=== PATIENT | female | born 1945 | race Caucasian/White ===

== ENCOUNTER 2020-01-10 15:32 | Inpatient (IN) | payer MEDICARE, BC ==
[~2020-01-10] VITALS: Ht 167.6 cm; Wt 78.6 kg
--- NOTE | 2020-01-10 15:54 | PHYS DOC ---
Past History Past Medical History: Cancer (colon), Hypertension, Hypothyroid Past Surgical History: Appendectomy, Cholecystectomy, Colectomy (partial), Hysterectomy Adult General Chief Complaint Chief Complaint: NAUSEA/VOMITING/DIARRHEA HPI HPI 74-year-old female with history of hypertension, hyperlipidemia, hypothyroidism, fibromyalgia, migraines, colon cancer in remission s/p partial colectomy, who presents for evaluation of 3 weeks of URI symptoms. The patient reports productive cough, nasal congestion. No fevers or chills. These symptoms are accompanied by some recent upper abdominal discomfort, dull, colicky. Associated with nausea, bloody/nonbilious emesis and some loose bowel movements. The patient was recently started on amoxicillin by her primary care physician with transient efficacy. Review of Systems Review of Systems General: No fevers, chills. Eyes: No blurred vision, diplopia. ENT: No sore throat. Reports congestion. CV: No chest pain, edema. Resp: No shortness of breath. Reports cough. GI: Reports loose bowel movements, abdominal pain, nausea, vomiting. : No dysuria, hematuria. Neuro: No headache, dizziness. MSK: No myalgia, arthralgia. Skin: No acute rash, lesion. All other systems were reviewed and found to be within normal limits, except as documented in this note. Allergies Allergies Allergies Coded Allergies Type Severity Reaction Last Updated Verified fentanyl Allergy Intermediate Rash 03/11/16 Yes Iodinated Contrast Media - IV Dye Allergy Unknown rash 03/11/16 Yes acetaminophen Allergy Unknown Rash 03/11/16 Yes aspirin Allergy Unknown Rash 03/11/16 Yes buprenorphine Allergy Unknown rash 03/11/16 Yes butalbital Allergy Unknown Rash 03/11/16 Yes caffeine Allergy Unknown Rash 03/11/16 Yes carbamazepine Allergy Unknown Rash 03/11/16 Yes isosorbide Allergy Unknown rash 03/11/16 Yes ketorolac Allergy Unknown Rash 03/11/16 Yes meperidine Allergy Unknown rash 03/11/16 Yes metaxalone Allergy Unknown Rash 03/11/16 Yes methadone Allergy Unknown Rash 03/11/16 Yes morphine Allergy Unknown 03/11/16 Yes oxycodone Allergy Unknown Rash 03/11/16 Yes pentazocine Allergy Unknown 03/11/16 Yes rofecoxib Allergy Unknown rash 03/11/16 Yes Physical Exam Physical Exam Gen: NAD. Head: NC/AT Eyes: No scleral icterus. No conjunctival injection. ENT: MMM. Posterior OP clear. Neck: Supple. NT. CV: RRR. Peripheral pulses intact. Resp: Globally diminished throughout. No increased work of breathing. Abd: Soft. NT. ND. No flank percussion tenderness. MSK: No peripheral cyanosis. No edema. Neuro: Awake and alert. Skin: Warm. Dry. Psych: Appropriate mood & affect. Current Patient Data Lab Results Laboratory Tests Test 01/10/20 15:49 White Blood Count 13.0 x10^3/uL Red Blood Count 4.47 x10^6/uL Hemoglobin 12.7 g/dL Hematocrit 38.1 % Mean Corpuscular Volume 85 fL Mean Corpuscular Hemoglobin 28 pg Mean Corpuscular Hemoglobin Concent 33 g/dL Red Cell Distribution Width 14.1 % Platelet Count 211 x10^3/uL Neutrophils (%) (Auto) 86 % Lymphocytes (%) (Auto) 5 % Monocytes (%) (Auto) 8 % Eosinophils (%) (Auto) 0 % Basophils (%) (Auto) 1 % Neutrophils # (Auto) 11.1 x10^3uL Lymphocytes # (Auto) 0.7 x10^3/uL Monocytes # (Auto) 1.0 x10^3/uL Eosinophils # (Auto) 0.0 x10^3/uL Basophils # (Auto) 0.1 x10^3/uL Sodium Level 135 mmol/L Potassium Level 3.9 mmol/L Chloride Level 98 mmol/L Carbon Dioxide Level 28 mmol/L Anion Gap 9 Blood Urea Nitrogen 15 mg/dL Creatinine 1.0 mg/dL Estimated GFR (Cockcroft-Gault) 53.9 BUN/Creatinine Ratio 15 Glucose Level 122 mg/dL Calcium Level 9.7 mg/dL Magnesium Level 1.8 mg/dL Total Bilirubin 0.6 mg/dL Aspartate Amino Transf (AST/SGOT) 26 U/L Alanine Aminotransferase (ALT/SGPT) 32 U/L Alkaline Phosphatase 171 U/L Total Protein 7.1 g/dL Albumin 3.2 g/dL Albumin/Globulin Ratio 0.8 Lipase 55 U/L Current Medications Medications (Trade) Dose Ordered Sig/Nadege Route PRN Reason Start Time Stop Time Status Last Admin Dose Admin Sodium Chloride 500 ml @ 0 mls/hr 1X ONCE IV 01/10/20 16:00 01/10/20 16:01 DC 01/10/20 16:16 Prednisone (Prednisone) 40 mg 1X ONCE PO 01/10/20 16:15 01/10/20 16:16 DC 01/10/20 16:17 Albuterol/ Ipratropium (Duoneb) 3 ml 1X ONCE NEB 01/10/20 16:15 01/10/20 16:16 DC 01/10/20 16:17 Laboratory Tests Test 01/10/20 15:49 White Blood Count 13.0 x10^3/uL Red Blood Count 4.47 x10^6/uL Hemoglobin 12.7 g/dL Hematocrit 38.1 % Mean Corpuscular Volume 85 fL Mean Corpuscular Hemoglobin 28 pg Mean Corpuscular Hemoglobin Concent 33 g/dL Red Cell Distribution Width 14.1 % Platelet Count 211 x10^3/uL Neutrophils (%) (Auto) 86 % Lymphocytes (%) (Auto) 5 % Monocytes (%) (Auto) 8 % Eosinophils (%) (Auto) 0 % Basophils (%) (Auto) 1 % Neutrophils # (Auto) 11.1 x10^3uL Lymphocytes # (Auto) 0.7 x10^3/uL Monocytes # (Auto) 1.0 x10^3/uL Eosinophils # (Auto) 0.0 x10^3/uL Basophils # (Auto) 0.1 x10^3/uL Sodium Level 135 mmol/L Potassium Level 3.9 mmol/L Chloride Level 98 mmol/L Carbon Dioxide Level 28 mmol/L Anion Gap 9 Blood Urea Nitrogen 15 mg/dL Creatinine 1.0 mg/dL Estimated GFR (Cockcroft-Gault) 53.9 BUN/Creatinine Ratio 15 Glucose Level 122 mg/dL Calcium Level 9.7 mg/dL Magnesium Level 1.8 mg/dL Total Bilirubin 0.6 mg/dL Aspartate Amino Transf (AST/SGOT) 26 U/L Alanine Aminotransferase (ALT/SGPT) 32 U/L Alkaline Phosphatase 171 U/L Total Protein 7.1 g/dL Albumin 3.2 g/dL Albumin/Globulin Ratio 0.8 Lipase 55 U/L Current Medications Medications (Trade) Dose Ordered Sig/Nadege Route PRN Reason Start Time Stop Time Status Last Admin Dose Admin Sodium Chloride 500 ml @ 0 mls/hr 1X ONCE IV 01/10/20 16:00 01/10/20 16:01 DC 01/10/20 16:16 Prednisone (Prednisone) 40 mg 1X ONCE PO 01/10/20 16:15 01/10/20 16:16 DC 01/10/20 16:17 Albuterol/ Ipratropium (Duoneb) 3 ml 1X ONCE NEB 01/10/20 16:15 01/10/20 16:16 DC 01/10/20 16:17 EKG EKG [] Radiology/Procedures Radiology/Procedures CXR: 1. Poor inspiration. 2. Basilar atelectasis or infiltrates. CTAP: 1. No acute abnormality is seen throughout the abdomen or pelvis. Postsurgical changes involving the proximal colon without complicating features. 2. Ill-defined infiltrate at the right lower lobe with intermixed nodularity. This is compatible with either an infectious infiltrate or potentially the sequela of aspiration. 3. Chronic findings as discussed above. Course & Med Decision Making Course & Med Decision Making Pertinent Labs and Imaging studies reviewed. (See chart for details) In summary, 74-year-old female who presents for evaluation of a few weeks of URI symptoms, not amenable to outpatient treatment with amoxicillin. Today, she is found to have bibasilar infiltrates, more so on the right lower lobe, in the setting of leukocytosis of 13. No fever, though mild tachycardia, improved with IV fluids. The patient will receive Rocephin and Zithromax for community acquired pneumonia. Due to outpatient treatment failure, the patient will be admitted for further management. Otherwise remains hemodynamically stable. Dragon Disclaimer Dragon Disclaimer This electronic medical record was generated, in whole or in part, using a voice recognition dictation system. Departure Departure: Impression: Primary Impression: Community acquired pneumonia Disposition: ADMITTED INPATIENT Admitting Physician: Mamta Bear Condition: STABLE Referrals: PRISCILA EAST MD (PCP) DONIS GRAY DO Jan 10, 2020 15:54
[2020-01-10] MEDS ORDERED: IV NORMAL SALINE 500ML 500 ML IV ONE (16:00)
[2020-01-10 16:01] LABS: BASO # 0.1 x10^3/uL (0.0-0.2); BASO % 1 % (0-3); EOS % 0 % (0-3); HEMATOCRIT 38.1 % (36.0-47.0); HEMOGLOBIN 12.7 g/dL (12.0-15.5); LYMPH # 0.7 x10^3/uL (1.0-4.8); LYMPH % 5 % (24-48); MEAN CORPUSCULAR HEMOGLOBIN 28 pg (25-35); MEAN CORPUSCULAR HGB CONC 33 g/dL (31-37); MEAN CORPUSCULAR VOLUME 85 fL (79-100); MONO % 8 % (0-9); NEUT # 11.1 x10^3uL (1.8-7.7); NEUT % 86 % (31-73); PLATELET COUNT 211 x10^3/uL (140-400); RED BLOOD COUNT 4.47 x10^6/uL (3.50-5.40); RED CELL DISTRIBUTION WIDTH 14.1 % (11.5-14.5)
[2020-01-10 16:09] LABS: CALCIUM 9.7 mg/dL (8.5-10.1); GFR 53.9; POTASSIUM 3.9 mmol/L (3.5-5.1)
[2020-01-10 16:15] LABS: ALBUMIN 3.2 g/dL (3.4-5.0); ALBUMIN/GLOBULIN RATIO 0.8 (1.0-1.7); MAGNESIUM 1.8 mg/dL (1.8-2.4); TOTAL BILIRUBIN 0.6 mg/dL (0.2-1.0); TOTAL PROTEIN 7.1 g/dL (6.4-8.2)
[2020-01-10] MEDS ORDERED: IPRATRPIUM/ALBUTEROL 0.5/2.5MG 3 ML NEBU. NEB ONE (16:15)
[2020-01-10] MEDS ORDERED: predniSONE 20 MG TABLET PO ONE (16:15)
--- NOTE | 2020-01-10 16:26 | RAD ---
PA and lateral chest. HISTORY: Cough PA and lateral views were taken of the chest. There is arthritis in both shoulders. Patient's taken a poor inspiration. There is hazy atelectasis or infiltrate along both diaphragms and also noted posteriorly on the lateral view. Heart is within normal limits in size. The aorta is tortuous. IMPRESSION: 1. Poor inspiration. 2. Basilar atelectasis or infiltrates. Electronically signed by: Freddie Shepard MD (01/10/2020 4:23 PM) [id number]
--- NOTE | 2020-01-10 16:38 | RAD ---
Study: CT abdomen/pelvis without intravenous contrast Indication: Upper abdominal pain. Nausea, vomiting and diarrhea. Comparison: None available. Technique: Helical CT imaging performed of the abdomen and pelvis without the use of intravenous contrast. Sagittal and coronal reformats were obtained. One or more of the following individualized dose reduction techniques were utilized for this examination: 1. Automated exposure control 2. Adjustment of the mA and/or kV according to patient size 3. Use of iterative reconstruction technique. Findings: Inherently limited evaluation without intravenous contrast. Chest: Close evaluation of the lower thorax is degraded by motion. Ill-defined infiltrate within the right lower lobe with intermixed nodularity. Trace pleural effusion on the right. Liver: Unremarkable. Gallbladder/Biliary Tree: Surgically absent. Pancreas: Partially atrophic. Spleen: Within normal limits for size. Adrenal Glands: Normal morphology. Kidneys/Ureters/Bladder: No intrarenal stones. No collecting system dilatation. Unremarkable urinary bladder. Reproductive Organs: Absent uterus. No adnexal mass. Colon: Surgical changes noted along the proximal colon. No pericolonic inflammatory changes. Appendix: Not visualized and presumed surgically absent. Small Bowel: Nonobstructed. Stomach: Unremarkable. Vasculature: Multifocal calcific atherosclerosis scattered throughout the aorta and iliofemoral system. The abdominal aorta is tortuous. Lymph Nodes: No suspicious lymph nodes by size criteria. Peritoneum and Body Wall: Scarring along the ventral midline. Bones: Degenerative sigmoid curvature of the visualized spinal column. Severe eccentric discogenic arthrosis along the concave margins of the curvature most notably at L1-L2 through L3-L4. Multilevel facet degeneration. Osseous neural foraminal encroachment is most pronounced on the left at L3-L4. Central canal encroachment is most pronounced at L2-L3 but does not appear severe. Partially visualized T10 vertebral body hemangioma. Degenerative changes at the right more so than left hips as well as of both sacroiliac joints. Miscellaneous: None. Impression: 1. No acute abnormality is seen throughout the abdomen or pelvis. Postsurgical changes involving the proximal colon without complicating features. 2. Ill-defined infiltrate at the right lower lobe with intermixed nodularity. This is compatible with either an infectious infiltrate or potentially the sequela of aspiration. 3. Chronic findings as discussed above. Electronically signed by: LEFTY MCGINNIS MD (01/10/2020 4:35 PM) [id number]
[2020-01-10] MEDS ORDERED: ONDANSETRON PF 4 MG/2 ML VIAL. IV PRN (17:30)
[2020-01-10 17:46] LABS: COLOR,URINE YELLOW
[2020-01-10 17:47] LABS: BILIRUBIN,URINE NEG (NEG); CLARITY,URINE CLEAR; GLUCOSE,URINE NEG (NEG); NITRITE,URINE NEG (NEG); RBC,URINE OCC /HPF (0-2); WBC,URINE OCC /HPF (0-4)
[2020-01-10 17:48] LABS: AMORPHOUS SEDIMENT,UR PRESENT /HPF; BACTERIA,URINE 0 /HPF (0-FEW); SQUAMOUS EPITHELIAL CELL,UR OCC /LPF
[2020-01-10] MEDS ORDERED: IV NORMAL SALINE 50ML 50 ML ONE (17:59)
[2020-01-10] MEDS ORDERED: cefTRIAXone SODIUM 1 GM VIAL ONE (17:59)
[2020-01-10] MEDS ORDERED: AZITHROMYCIN 500 MG VIAL. IV ONE (17:59)
[2020-01-10] MEDS ORDERED: IV NORMAL SALINE 250ML 250 ML ONE (17:59)
[2020-01-10] MEDS ORDERED: AZITHROMYCIN 500 MG in IV NORMAL SALINE 250ML 250 ML IV ONE (18:15)
[2020-01-10 19:05] VITALS: BP 116/60
[2020-01-10] MEDS ORDERED: GABA600T7 PO (19:46)
[2020-01-10 20:00] VITALS: BP 116/60
[2020-01-10] MEDS ORDERED: ACET-704 PO ×2 (20:21→20:29)
[2020-01-10] MEDS ORDERED: FLUT16SP21 NS (20:21)
[2020-01-10] MEDS ORDERED: HYDR25TA10 PO (20:21)
[2020-01-10] MEDS ORDERED: MONT10TA11 PO (20:21)
[2020-01-10] MEDS ORDERED: DICL100G28 TOP (20:21)
[2020-01-10] MEDS ORDERED: LEVO150T5 PO (20:21)
[2020-01-10] MEDS ORDERED: BACL20TA PO (20:21)
[2020-01-10] MEDS ORDERED: ALBU2.5V8 INH (20:21)
[2020-01-10] MEDS ORDERED: LIDO5CRE18 TP (20:21)
[2020-01-10] MEDS ORDERED: PROM5SYR2 PO (20:21)
[2020-01-10] MEDS ORDERED: TOPI50TA8 PO (20:21)
[2020-01-10] MEDS ORDERED: LIDOCAINE TP PRN (20:30)
[2020-01-10] MEDS ORDERED: ACETAMINOPHEN/CODEINE 300/30MG TABLET PO PRN (20:30)
[2020-01-10] MEDS: MONTELUKAST 10 MG TABLET. PO SCH (21:00)
[2020-01-10] MEDS: GABAPENTIN 300 MG CAPSULE. PO SCH (21:00)
[2020-01-10] MEDS: methylPREDNISolone SOD SUCC PF 40 MG/ML VIAL. IV SCH (21:00)
[2020-01-10] MEDS: ACETAMINOPHEN/CODEINE 300/30MG TABLET PO PRN (21:01)
[2020-01-10 22:40] VITALS: BP 100/59
[2020-01-11] VITALS (7 sets, daily range): BP systolic 111–123; BP diastolic 56–72
[2020-01-11] MEDS: guaiFENesin/CODEINE 100mg/10mg 5 ML LIQUID PO PRN ×2 (02:40→20:16)
[2020-01-11] MEDS: IPRATRPIUM/ALBUTEROL 0.5/2.5MG 3 ML NEBU. NEB SCH ×4 (04:54→21:17)
[2020-01-11] MEDS: methylPREDNISolone SOD SUCC PF 40 MG/ML VIAL. IV SCH ×3 (05:49→21:20)
[2020-01-11 06:27] LABS: BASO % 0 % (0-3); EOS % 0 % (0-3); HEMATOCRIT 38.5 % (36.0-47.0); HEMOGLOBIN 12.7 g/dL (12.0-15.5); LYMPH # 0.6 x10^3/uL (1.0-4.8); LYMPH % 6 % (24-48); MEAN CORPUSCULAR HEMOGLOBIN 29 pg (25-35); MEAN CORPUSCULAR HGB CONC 33 g/dL (31-37); MEAN CORPUSCULAR VOLUME 86 fL (79-100); MONO # 0.3 x10^3/uL (0.0-1.1); MONO % 3 % (0-9); NEUT # 9.2 x10^3uL (1.8-7.7); NEUT % 90 % (31-73); PLATELET COUNT 193 x10^3/uL (140-400); RED BLOOD COUNT 4.45 x10^6/uL (3.50-5.40); RED CELL DISTRIBUTION WIDTH 14.2 % (11.5-14.5); WHITE BLOOD COUNT 10.2 x10^3/uL (4.0-11.0)
[2020-01-11 06:36] LABS: ALBUMIN/GLOBULIN RATIO 0.7 (1.0-1.7); CALCIUM 9.9 mg/dL (8.5-10.1); CREATININE 0.9 mg/dL (0.6-1.0); GFR 60.9; POTASSIUM 3.8 mmol/L (3.5-5.1); TOTAL BILIRUBIN 0.4 mg/dL (0.2-1.0); TOTAL PROTEIN 7.1 g/dL (6.4-8.2)
[2020-01-11] MEDS ORDERED: IV NORMAL SALINE 500ML 500 ML IV ONE (07:00)
[2020-01-11] MEDS: IV NORMAL SALINE 1,000ML 1,000 ML IV SCH ×2 (08:12→17:33)
[2020-01-11] MEDS: TOPIRAMATE 25 MG TABLET. PO PRN (08:13)
[2020-01-11] MEDS: GABAPENTIN 300 MG CAPSULE. PO SCH ×4 (08:13→20:16)
[2020-01-11] MEDS: FLUTICASONE 50MCG/NASAL SPRAY 16GM BOTTLE. NS SCH (08:13)
[2020-01-11] MEDS: LACTOBACILLUS RHAMNOSUS GG 1 CAPSULE. PO SCH ×2 (08:14→20:16)
[2020-01-11] MEDS: DICLOFENAC SODIUM 1% TOPICAL GEL 100GM TUBE. TP PRN (08:14)
[2020-01-11] MEDS: hydroCHLOROthiazide 25 MG TABLET PO SCH ×2 (08:14→17:25)
--- NOTE | 2020-01-11 16:06 | HP ---
ADMIT DATE: 01/10/2020 HISTORY OF PRESENT ILLNESS: The patient is a 74-year-old female patient, who came to the Emergency Room complaining of productive cough, nasal congestion that has been going on for almost 3 weeks now. She denied any fever or chills. She also has some upper abdominal and right-sided discomfort. She has nausea, bloody nonbilious emesis and some loose bowel movement. DICTATION ENDED AT THIS POINT. ELDON PEREZ MD DR: MADISYN/deep JOB#: [id number] / [id number]
--- NOTE | 2020-01-11 16:38 | HP ---
ADMIT DATE: 01/10/2020 HISTORY OF PRESENT ILLNESS: The patient is a 74-year-old female patient who presented to the Emergency Room for evaluation of 3 weeks of cough with greenish sputum that has been going on for 3 weeks. The cough is productive with greenish sputum. She has no fever or chills. Symptoms are accompanied recently with upper abdominal discomfort, dull, colicky associated with nausea, bloody nonbilious emesis and some loose bowel movement. She was on amoxicillin for almost 3 weeks. She takes it 4 times a day without any relief. She was evaluated in the Emergency Room and her lab work showed that her white cell count is slightly elevated at 13,000. Her chemistry was unremarkable and her x-ray of the chest showed that the patient has bilateral atelectasis or infiltrate. There is arthritis in both shoulders. There is hazy atelectasis and infiltrate along both diaphragms and also noted posteriorly on the lateral view. The heart is within normal size. Aorta is tortuous and therefore the patient was admitted with community-acquired pneumonia with failed outpatient treatment. Her CT scan of the abdomen and pelvis also showed no acute abnormalities seen throughout the abdomen and pelvis. There were surgical changes involving the proximal colon without complicating features, ill-defined infiltrate in the right lower lobe with intermixed nodularity compatible with either an infectious infiltrate or potentially sequelae of aspiration. She has chronic finding as discussed above. The patient was admitted, started on IV ceftriaxone as well as Zithromax as well as IV fluid together with steroids and bronchodilator. PAST MEDICAL HISTORY: Significant for hypertension, hyperlipidemia, hypothyroidism, bronchial asthma. She has colon cancer, status post resection twice in 03/2018 and 03/2019, osteoarthritis, fibromyalgia, chronic back pain and peripheral neuropathy. PAST SURGICAL HISTORY: Significant for cervical laminectomy, bilateral total knee arthroplasty, bilateral cataract extraction, tonsillectomy, appendectomy, cholecystectomy. ALLERGIES: SHE IS ALLERGIC TO IODINATED CONTRAST MEDIA, IV DYE, ACETAMINOPHEN, ASPIRIN, BUPRENORPHINE, BUTALBITAL, CAFFEINE, CARBAMAZEPINE, FENTANYL, ISOSORBIDE, KETOROLAC, MEPERIDINE, METAXALONE, METHADONE, MORPHINE, OXYCODONE, PENTAZOCINE, ROFECOXIB FOR VIOXX. MEDICATIONS: She is currently on following medications: She is on albuterol sulfate 1-2 puffs 3 times a day, baclofen 20 mg 3 times a day, diclofenac sodium 1 gram 4 times a day, acetaminophen with codeine 1 tablet every 6 hours, acetaminophen with codeine 2 tablets every 6 hours, gabapentin 600 mg 4 times a day, topiramate 50 mg twice a day, hydrochlorothiazide 25 mg twice a day with meals, promethazine hydrochloride with codeine 5 mL every 6 hours, montelukast sodium 10 mg at bedtime, fluticasone propionate 2 sprays to each nostril daily, levothyroxine sodium 150 mcg weekly, lidocaine 1 application topically 3 times a day. FAMILY HISTORY: Apparently her father at age of 56 because of stomach cancer, metastases. Mother at age of 96 because of colon cancer, but she had diagnosis of colon cancer at 65. She has 6 sisters, 3 of them are and 6 brothers, all of them are with 4 because of colon cancer, 2 with prostate cancer. One of her sisters of a car accident and one as complication of systemic lupus erythematosus. SOCIAL HISTORY: She is , has 1 son. Does not smoke, drink alcohol or use any recreational drugs. She retired [employer] from the [employer]. REVIEW OF SYSTEMS: As per history of present illness. PHYSICAL EXAMINATION: GENERAL: On arrival to the Emergency Room, she looked well and was clearly in no apparent respiratory distress. No pallor, jaundice, cyanosis or thyromegaly. No jugular venous distention. No limb edema. VITAL SIGNS: Her heart rate was 93, blood pressure 120/56, temperature 97.9, respiratory rate was 18 and oxygen saturation was 94% on 2 liters of oxygen. HEAD, EYES, EARS, NOSE AND THROAT: Showed normocephalic, atraumatic. NECK: Supple. HEART: Showed normal first and second heart sounds with no gallop or murmur. CHEST: Showed central trachea, equally reduced expansion, reduced air entry, vesicular sounds with bilateral crepitation, and very few scattered rhonchi. ABDOMEN: Distended, soft, nontender. NEUROLOGIC: She is awake, alert, responding appropriately. All cranial nerves intact. EXTREMITIES: She moves extremities without difficulty. LABORATORY DATA: Showed a white cell count 13,000, hemoglobin 12.7, hematocrit 38, MCV 85 and platelet count 211,000 with a manual differential showing 86% polymorphs, 5% lymphocytes, and 8% monocytes. Her serum sodium was 135, potassium 3.9, chloride 98, bicarbonate 28, anion gap of 9, BUN 15, creatinine 1, estimated GFR was 54 mL per minute. Her glucose 122, lactic acid was 2.8, calcium was 9.7, magnesium was 1.8. Total bilirubin, AST, ALT were normal. Alkaline phosphatase slightly elevated. Total protein 7.1, albumin 3.2. Lipase was normal. TSH was normal at 0.793. Her urinalysis showed the urine was yellow, clear with a pH of 5.5, specific gravity 1.025, very small amount of protein and the urine was negative for glucose, ketones, blood, nitrite, leukocyte esterase. There are no rbc's, no wbc's, and no bacteria. Her chest x-ray showed that the patient had bilateral atelectasis versus infiltrate; however, the patient has poor inspiratory effort. CT scan of the abdomen and pelvis showed that there is ill-defined infiltrate within the right lower lobe with intermixed nodularity, trace pleural effusion on the right. Liver, gallbladder, pancreas, spleen, adrenal glands, kidneys, ureters and other are all unremarkable. The appendix not visualized and presumably surgically absent. Small bowel is nonobstructed. Stomach unremarkable. She has multifocal calcified lateral atherosclerosis. No suspicious lymph nodes by size criteria and basically the patient has no acute abnormality seen throughout the abdomen and pelvis apart from postsurgical changes involving the proximal colon without complicating features. ASSESSMENT AND PLAN: The patient was admitted with failed community-acquired pneumonia outpatient treatment. She was started on IV ceftriaxone and Zithromax and we will also start on IV fluid. She had multiple episodes of diarrhea and she was on antibiotic for almost 3 weeks. Stool samples were sent for C. diff toxin, the results were still pending at the time. ELDON PEREZ MD DR: MADISYN/deep JOB#: [id number] / [id number]
[2020-01-11] MEDS: AZITHROMYCIN 250 MG TABLET. PO SCH (17:36)
[2020-01-11] MEDS: ACETAMINOPHEN/CODEINE 300/30MG TABLET PO PRN (20:17)
[2020-01-11] MEDS: MONTELUKAST 10 MG TABLET. PO SCH (20:17)
--- NOTE | 2020-01-11 20:25 | PN ---
DATE: 01/11/2020 SUBJECTIVE: The patient is resting slightly propped up in bed, in no apparent distress. She continues to have cough, but apparently less than it was before. She apparently has some nausea, but no vomiting. She continues to have loose bowel movement. PHYSICAL EXAMINATION: GENERAL: When I saw her this afternoon, she looked well and was clearly in no apparent respiratory distress. No pallor, jaundice, cyanosis or thyromegaly. No jugular venous distention. No lower limb edema. VITAL SIGNS: Her heart rate was 79, blood pressure 111/60, temperature was 97.9, respiratory rate was 20 and oxygen saturation was 96% on 2 liters of oxygen. HEAD, EYES, EARS, NOSE AND THROAT: Showed normocephalic, atraumatic. NECK: Supple. HEART: Showed normal first and second heart sounds. No gallop or murmur. CHEST: Shows central trachea, equally reduced expansion, reduced air entry, but air entry is much diminished on the right side. There is bilateral basal crepitation, very few scattered rhonchi. ABDOMEN: Distended, soft, nontender. NEUROLOGIC: She is awake, alert, responding appropriately. All cranial nerves intact. She moves extremities without difficulty. LABORATORY DATA: Her lab work this morning showed a white cell count is down to 10,000, hemoglobin 12.7, hematocrit 38, MCV 86 and platelet count of 193. Her chemistry showed serum sodium 139, potassium 3.8, chloride 101, bicarbonate 25, anion gap 13, BUN 14, creatinine 0.9, estimated GFR was 61 mL per minute. Her glucose 92, calcium was 9.9. Total bilirubin, AST, ALT, alkaline phosphatase were normal. Total protein was 7.1, albumin 3. ASSESSMENT: Community-acquired pneumonia, improving. Characterize nausea, vomiting and diarrhea. Stool was sent for C. diff toxin, the results are still pending. She has a multitude of other medical problems including hypertension, hyperlipidemia, bronchial asthma, hypothyroidism, fibromyalgia and colon cancer resection twice. ELDON PEREZ MD DR: MADISYN/deep JOB#: [id number] / [id number]
[2020-01-12] VITALS (7 sets, daily range): BP systolic 97–124; BP diastolic 49–73
[2020-01-12] MEDS: guaiFENesin/CODEINE 100mg/10mg 5 ML LIQUID PO PRN (04:14)
[2020-01-12] MEDS: ACETAMINOPHEN/CODEINE 300/30MG TABLET PO PRN ×2 (04:15→17:15)
[2020-01-12] MEDS: IV NORMAL SALINE 1,000ML 1,000 ML IV SCH ×2 (04:15→13:11)
[2020-01-12] MEDS: IPRATRPIUM/ALBUTEROL 0.5/2.5MG 3 ML NEBU. NEB SCH ×4 (05:09→21:10)
[2020-01-12] MEDS: methylPREDNISolone SOD SUCC PF 40 MG/ML VIAL. IV SCH ×3 (05:38→14:30)
[2020-01-12 06:36] LABS: HEMATOCRIT 34.2 % (36.0-47.0); HEMOGLOBIN 11.2 g/dL (12.0-15.5); RED BLOOD COUNT 3.97 x10^6/uL (3.50-5.40); RED CELL DISTRIBUTION WIDTH 14.2 % (11.5-14.5); WHITE BLOOD COUNT 13.5 x10^3/uL (4.0-11.0)
[2020-01-12 06:45] LABS: CALCIUM 9.3 mg/dL (8.5-10.1); CREATININE 0.8 mg/dL (0.6-1.0); GFR 69.7; POTASSIUM 3.5 mmol/L (3.5-5.1)
[2020-01-12] MEDS ORDERED: ONDANSETRON PF 4 MG/2 ML VIAL. IVP PRN (09:30)
[2020-01-12] MEDS: FLUTICASONE 50MCG/NASAL SPRAY 16GM BOTTLE. NS SCH (09:37)
[2020-01-12] MEDS: DICLOFENAC SODIUM 1% TOPICAL GEL 100GM TUBE. TP PRN (09:37)
[2020-01-12] MEDS: LACTOBACILLUS RHAMNOSUS GG 1 CAPSULE. PO SCH ×2 (09:38→20:29)
[2020-01-12] MEDS: hydroCHLOROthiazide 25 MG TABLET PO SCH ×2 (09:38→17:09)
[2020-01-12] MEDS: GABAPENTIN 300 MG CAPSULE. PO SCH ×4 (09:38→20:30)
[2020-01-12] MEDS: TOPIRAMATE 25 MG TABLET. PO PRN (09:40)
[2020-01-12] MEDS: AZITHROMYCIN 250 MG TABLET. PO SCH (17:09)
--- NOTE | 2020-01-12 19:24 | PN ---
DATE: 01/12/2020 SUBJECTIVE: The patient is resting, slightly propped up in bed, in no apparent distress. She continued to have cough with yellowish sputum; however, she is feeling generally much improved. Her diarrhea has largely subsided. The C. diff was negative. She is afebrile and she is now maintaining her oxygen saturation at 95% on room air. OBJECTIVE: GENERAL: When I examined her, she looked well and was clearly in no apparent respiratory distress. No pallor, jaundice, cyanosis or thyromegaly. No jugular venous distention. No limb edema. VITAL SIGNS: Her heart rate was 73, blood pressure was 116/73, temperature 97.9, respiratory rate was 16, and oxygen saturation was 95% on room air. HEAD, EYES, EARS, NOSE AND THROAT: Showed normocephalic, atraumatic. NECK: Supple. CARDIAC: Normal first and second heart sounds. No gallop, rub or murmur. CHEST: Shows central trachea, equal bilateral expansion air entry, vesicular sounds with bilateral basal crepitation posteriorly. I could not appreciate any rhonchi. ABDOMEN: Slightly distended, soft, nontender. NEUROLOGIC: She is grossly intact. Her intake over the last 24 hours was 1300, output was 150. LABORATORY DATA: Her lab work this morning showed a serum sodium 138, potassium 3.5, chloride 103, bicarbonate 23, anion gap 12, BUN 15, creatinine 0.8, estimated GFR was 69 mL per minute and glucose was 102, calcium was 9.3. Her white cell count is slightly up at 13,500, hemoglobin 11, hematocrit 34, MCV 86 and platelet count of 196,000. Her C. diff toxins were negative. ASSESSMENT: 1. Community-acquired pneumonia. Pneumonia is improving. The patient has no further episodes of nausea, vomiting. Her diarrhea subsided. Her C. diff was negative. 2. She has multiple other medical problems including: A. Hypertension. B. Hyperlipidemia. C. Bronchial asthma. D. Hypothyroidism. E. Fibromyalgia. F Colon cancer, status post resection prior x 2. PLAN: The plan is to continue with IV fluid. I would cut down the steroids to twice a day for today and cut down IV fluids to 75 mL per hour. We will evaluate her again tomorrow and we will decide on the further management accordingly. ELDON PEREZ MD DR: Zackery JOB#: [id number] / [id number]
[2020-01-12] MEDS: MONTELUKAST 10 MG TABLET. PO SCH (20:29)
[2020-01-12] MEDS: diphenhydrAMINE HCL 25 MG CAPSULE PO PRN (20:42)
[2020-01-13] MEDS: IV NORMAL SALINE 1,000ML 1,000 ML IV SCH (02:52)
[2020-01-13] MEDS: methylPREDNISolone SOD SUCC PF 40 MG/ML VIAL. IV SCH ×2 (02:56→13:49)
[2020-01-13 05:56] VITALS: BP 130/75
[2020-01-13] MEDS: IPRATRPIUM/ALBUTEROL 0.5/2.5MG 3 ML NEBU. NEB SCH ×4 (05:57→20:21)
[2020-01-13 07:05] LABS: HEMATOCRIT 38.7 % (36.0-47.0); HEMOGLOBIN 12.6 g/dL (12.0-15.5); RED BLOOD COUNT 4.45 x10^6/uL (3.50-5.40); RED CELL DISTRIBUTION WIDTH 14.5 % (11.5-14.5); WHITE BLOOD COUNT 10.4 x10^3/uL (4.0-11.0)
[2020-01-13 08:41] LABS: GFR 53.9; POTASSIUM 3.6 mmol/L (3.5-5.1)
[2020-01-13] MEDS: FLUTICASONE 50MCG/NASAL SPRAY 16GM BOTTLE. NS SCH (09:00)
[2020-01-13] MEDS: hydroCHLOROthiazide 25 MG TABLET PO SCH (09:25)
[2020-01-13] MEDS: GABAPENTIN 300 MG CAPSULE. PO SCH ×4 (09:26→21:03)
[2020-01-13] MEDS: LACTOBACILLUS RHAMNOSUS GG 1 CAPSULE. PO SCH ×2 (09:26→21:03)
[2020-01-13] MEDS: DICLOFENAC SODIUM 1% TOPICAL GEL 100GM TUBE. TP PRN (09:45)
[2020-01-13] MEDS: ACETAMINOPHEN/CODEINE 300/30MG TABLET PO PRN (09:46)
[2020-01-13 10:52] VITALS: BP 131/72
--- NOTE | 2020-01-13 13:27 | PN ---
DATE: 01/13/2020 SUBJECTIVE: The patient is sitting on the edge of the bed comfortably in no apparent distress. She denied any further episodes of cough or phlegm, no shortness of breath or chest tightness; however, she has had multiple loose bowel movements this morning. Denied any abdominal pain. She had colon resection twice. PHYSICAL EXAMINATION: GENERAL: When I examined her this morning, she looked well and was clearly in no apparent respiratory distress. No pallor, jaundice, cyanosis or thyromegaly. No jugular venous distention. No limb edema. VITAL SIGNS: Her heart rate was 85, blood pressure was 131/72, temperature was 97.5, respiratory rate was 18 and oxygen saturation was 98% on room air. HEAD, EYES, EARS, NOSE AND THROAT: Showed normocephalic, atraumatic. NECK: Supple. HEART: Showed normal first and second heart sounds. No gallop, rub or murmur. CHEST: Showed central trachea, equal bilateral chest expansion, air entry, vesicular breath sounds, very few bilateral basal crepitation. ABDOMEN: Slightly distended, soft, nontender. NEUROLOGIC: She is awake, alert, responding appropriately. All cranial nerves intact. She moves extremities without difficulty. Her intake was 4334, output was 400. LABORATORY DATA: Her lab work this morning showed a white cell count of 10,400, hemoglobin 12.6, hematocrit 38, MCV 87, platelet count 271,000. Her chemistry showed a serum sodium 140, potassium 3.6, chloride 103, bicarbonate 25, anion gap of 12, BUN 15, creatinine 1, estimated GFR was 54 mL per minute. Her glucose 146, calcium was 10. The patient has continued to be on IV antibiotic. ASSESSMENT: 1. Community-acquired pneumonia, clinically improving. The patient has no further episodes of cough or phlegm. 2. Recurrent bouts of nausea, vomiting and diarrhea and then the patient has no further episodes of nausea, vomiting; however, she continued to have diarrhea, although her C. diff toxins were negative. 3. She has multiple other medical problems including: A. Hypertension. B. Hyperlipidemia. C. Bronchial asthma. D. Hypothyroidism. E. Fibromyalgia. F. Colon cancer, status post resection x 2. PLAN: I discontinued her IV fluid. I did cut down steroids to twice a day. We will evaluate as she continued to have diarrhea. I will start her on Imodium and she remained stable and that they might be able to discharge her tomorrow. ELDON PEREZ MD DR: MADISYN/deep JOB#: [id number] / [id number]
[2020-01-13] MEDS: DIPHENOXYLATE/ATROPINE TABLET. PO SCH ×2 (13:48→21:03)
[2020-01-13 15:07] VITALS: BP 137/68
[2020-01-13] MEDS: AZITHROMYCIN 250 MG TABLET. PO SCH (17:48)
[2020-01-13 20:04] VITALS: BP 134/74
[2020-01-13] MEDS: MONTELUKAST 10 MG TABLET. PO SCH (21:03)
[2020-01-13] MEDS: diphenhydrAMINE HCL 25 MG CAPSULE PO PRN (21:06)
[2020-01-14] MEDS: methylPREDNISolone SOD SUCC PF 40 MG/ML VIAL. IV SCH ×2 (02:10→13:23)
[2020-01-14 07:13] LABS: CALCIUM 9.8 mg/dL (8.5-10.1); CREATININE 0.8 mg/dL (0.6-1.0); GFR 69.7; POTASSIUM 4.2 mmol/L (3.5-5.1)
[2020-01-14 07:37] VITALS: BP 135/75
[2020-01-14] MEDS: IPRATRPIUM/ALBUTEROL 0.5/2.5MG 3 ML NEBU. NEB SCH ×4 (08:00→20:41)
[2020-01-14] MEDS: GABAPENTIN 300 MG CAPSULE. PO SCH ×4 (08:41→20:29)
[2020-01-14] MEDS: LACTOBACILLUS RHAMNOSUS GG 1 CAPSULE. PO SCH ×2 (08:41→20:29)
[2020-01-14] MEDS: FLUTICASONE 50MCG/NASAL SPRAY 16GM BOTTLE. NS SCH (08:41)
[2020-01-14] MEDS: DIPHENOXYLATE/ATROPINE TABLET. PO SCH ×3 (08:41→20:29)
[2020-01-14] MEDS: BACLOFEN 20 MG TABLET PO PRN ×2 (08:42→20:29)
[2020-01-14 10:48] VITALS: BP 125/67
[2020-01-14] MEDS: ACETAMINOPHEN/CODEINE 300/30MG TABLET PO PRN ×2 (11:13→20:30)
[2020-01-14 14:55] VITALS: BP 130/69
[2020-01-14] MEDS: AZITHROMYCIN 250 MG TABLET. PO SCH (17:05)
[2020-01-14 19:35] VITALS: BP 130/72
[2020-01-14] MEDS: MONTELUKAST 10 MG TABLET. PO SCH (20:29)
[2020-01-14] MEDS: CEFDINIR 300 MG CAPSULE PO SCH (20:29)
[2020-01-14] MEDS: diphenhydrAMINE HCL 25 MG CAPSULE PO PRN (20:34)
--- NOTE | 2020-01-14 21:31 | PN ---
DATE: 01/14/2020 SUBJECTIVE: The patient is sitting comfortably in her chair, in no apparent respiratory distress. She is definitely much improved. The diarrhea is slowing down and her stool for C. diff was negative. Her cough and chest tightness is improving. PHYSICAL EXAMINATION: GENERAL: When I examined her, she looked well and was clearly in no apparent respiratory distress. No pallor, jaundice, cyanosis, or thyromegaly. No jugular venous distention or limb edema. VITAL SIGNS: Her heart rate was 100, blood pressure was 125/67, temperature was 97.6, respiratory rate was 18 and oxygen saturation was 98% on 2 liters of oxygen. HEAD, EYES, EARS, NOSE AND THROAT: Showed normocephalic, atraumatic. NECK: Supple. HEART: Showed normal first and second heart sounds. No gallop or murmur. CHEST: Clear to auscultation. No crepitation or rhonchi. ABDOMEN: Distended, soft, nontender. NEUROLOGIC: She is awake, alert, responding appropriately. All cranial nerves intact. She moves extremities without difficulty. Her intake over the last 24 hours was 1220, no output was recorded. LABORATORY DATA: Her lab work this morning showed a serum sodium 142, potassium 4.2, chloride 105, bicarbonate 26, anion gap of 11, BUN 13, creatinine 0.8, estimated GFR was 69 mL per minute. Her glucose 138, calcium was 9.8. ASSESSMENT: 1. Community-acquired pneumonia, improving. Her cough has largely subsided. 2. Recurrent bouts of nausea, vomiting, diarrhea are improving. Her stool for C. diff was negative. 3. She has multiple other medical problems including: A. Hypertension. B. Hyperlipidemia. C. Bronchial asthma. D. Hypothyroidism. E. Fibromyalgia. F. Colon cancer, status post resection x 2. PLAN: We will switch her to oral prednisone and oral cefdinir. She will be discharged tomorrow. ELDON PEREZ MD DR: MADISYN/deep JOB#: [id number] / [id number]
[2020-01-14 23:40] VITALS: BP 148/74
[2020-01-15] MEDS: IPRATRPIUM/ALBUTEROL 0.5/2.5MG 3 ML NEBU. NEB SCH ×2 (05:31→09:27)
[2020-01-15 06:02] VITALS: BP 154/71
[2020-01-15] MEDS: DIPHENOXYLATE/ATROPINE TABLET. PO SCH ×2 (08:35→12:55)
[2020-01-15] MEDS: LACTOBACILLUS RHAMNOSUS GG 1 CAPSULE. PO SCH (08:35)
[2020-01-15] MEDS: TOPIRAMATE 25 MG TABLET. PO PRN (08:35)
[2020-01-15] MEDS: FLUTICASONE 50MCG/NASAL SPRAY 16GM BOTTLE. NS SCH (08:35)
[2020-01-15] MEDS: CEFDINIR 300 MG CAPSULE PO SCH (08:35)
[2020-01-15] MEDS: GABAPENTIN 300 MG CAPSULE. PO SCH ×2 (08:35→12:55)
[2020-01-15] MEDS ORDERED: predniSONE 20 MG TABLET PO SCH (09:00)
[2020-01-15] MEDS: ACETAMINOPHEN/CODEINE 300/30MG TABLET PO PRN (10:49)
[2020-01-15 11:06] VITALS: BP 128/72
[2020-01-15] MEDS ORDERED: LEVOTHYROXINE 150 MCG TABLET PO SCH (16:00)
--- NOTE | 2020-01-15 17:28 | DS ---
DATE OF DISCHARGE: 01/13/2020 HOSPITAL COURSE: The patient is a 74-year-old female patient who came to the Emergency Room of [facility] with complaint of productive cough and nasal congestion that has been going on for 3 weeks. She denied any fever or chills. She has also had upper abdominal right sided discomfort, nausea, bloody nonbilious emesis and some loose bowel movement. She has been on amoxicillin 500 mg 3 times a day for almost 3 weeks without any relief. She was evaluated and her lab work shows slightly elevated white cell count of 13,000. Her chemistry was unremarkable. X-ray showed that the patient has bilateral atelectasis or infiltrate. The patient was admitted and was started on ceftriaxone as well as Zithromax. CT scan of the abdomen and pelvis showed no acute abnormalities seen throughout the abdomen and pelvis. There were some surgical changes involving the proximal colon without complicating features and ill-defined infiltrate in the right lower lobe with intermixed nodularity compatible with either an infectious process potentially and sequelae of aspiration. She has chronic finding and the patient did very well. Her cough and sputum have largely subsided. Initially, she was requiring oxygen and that has also become lesser now. She has had no more cough, no congestion. No shortness of breath, chest tightness or wheezing. She is afebrile, hemodynamically stable. PHYSICAL EXAMINATION: GENERAL: When I saw her this afternoon, she looked well and was clearly in no apparent respiratory distress. VITAL SIGNS: Her heart rate was 72, blood pressure was 128/72, temperature was 97.5, respiratory rate was 20 and oxygen saturation was 94% on room air. HEAD, EYES, EARS, NOSE AND THROAT: Showed normocephalic, atraumatic. NECK: Supple. HEART: Showed normal first and second heart sounds. No gallop, rub or murmur. CHEST: Clear to auscultation. No crepitation or rhonchi. ABDOMEN: Distended, soft, nontender. No guarding or rigidity. No organomegaly. All hernial orifice intact. Bowel sounds normal. NEUROLOGIC: She was awake, alert, responding appropriately. All cranial nerves intact. EXTREMITIES: She moves extremities without difficulty. She ambulates without assistance or assistive devices. LABORATORY DATA: Showed a white cell count is 10,000, hemoglobin 12, hematocrit 38, MCV 87 and platelet count 271,000. Her chemistry showed a serum sodium 142, potassium 4.2, chloride 105, bicarbonate 26, anion gap of 11, BUN 13, creatinine 0.8, estimated GFR was 69 mL per minute. Her glucose 133, calcium was 9.8. Her urinalysis showed the urine was yellow, clear with a pH of 5.5. Her influenza and hep C. diff toxins were negative. DISCHARGE MEDICATIONS: The patient was discharged home to continue on cefdinir 300 mg twice a day for 5 more days, Medrol Dosepak and she is to continue on her acetaminophen with codeine 1 tablet every 6 hours, albuterol sulfate for inhaler 1-2 puffs 3 times a day, baclofen 20 mg 3 times a day, diclofenac sodium 100 gram gel 1 application 4 times a day, fluticasone propionate 2 sprays by each nostril twice a day, gabapentin 600 mg 4 times a day, hydrochlorothiazide 25 mg twice a day, levothyroxine sodium 150 mcg once a day, lidocaine cream apply topically 3 times a day for joint pain, montelukast 10 mg at bedtime, promethazine/codeine 5 mL every 6 hours and topiramate 50 mg twice a day. FINAL DISCHARGE DIAGNOSES: 1. Healthcare-associated pneumonia, resolved. She is afebrile, hemodynamically stable, normal white cell. As she is on room air, maintaining her oxygen saturation 96%. 2. Recurrent bout of nausea and vomiting and diarrhea has improved. Her stools for Clostridium difficile were negative. 3. She has multiple other medical problems including: A. Hypertension. B. Hyperlipidemia. C. Bronchial asthma. D. Hypothyroidism. E. Fibromyalgia. F. Colon cancer, status post resection x 2. ELDON PEREZ MD DR: MADISYN/deep JOB#: [id number] / [id number]
== END 2020-01-15 15:52 | disposition home or self-care (01) | DRG 871 ==
LOC: ER 15:32 → ICU 17:30 → 1 SOUTH 01-12 14:11
PROVIDERS: ADMIT Internal Medicine; ATTEND Internal Medicine
DX: A41.9 Sepsis, unspecified organism (principal); J18.9 Pneumonia, unspecified organism; J98.11 Atelectasis; E03.9 Hypothyroidism, unspecified; Z96.653 Presence of artificial knee joint, bilateral; M19.011 Primary osteoarthritis, right shoulder; M19.012 Primary osteoarthritis, left shoulder; J45.909 Unspecified asthma, uncomplicated; I10 Essential (primary) hypertension; E78.5 Hyperlipidemia, unspecified; G89.29 Other chronic pain; G43.909 Migraine, unspecified, not intractable, without status migrainosus; G62.9 Polyneuropathy, unspecified; M79.7 Fibromyalgia; Y95 Nosocomial condition; Z85.038 Personal history of other malignant neoplasm of large intestine; Z90.49 Acquired absence of other specified parts of digestive tract; Z90.710 Acquired absence of both cervix and uterus; Z98.42 Cataract extraction status, left eye; Z98.41 Cataract extraction status, right eye; Z80.0 Family history of malignant neoplasm of digestive organs; Z88.5 Allergy status to narcotic agent; Z88.8 Allergy status to other drugs, medicaments and biological substances; Z88.6 Allergy status to analgesic agent; Z91.041 Radiographic dye allergy status
CPT/HCPCS: 36415; 71046; 74176; 80048; 80053; 81001; 83605; 83690; 83735; 84443; 85025; 85027; 87493; 94640; 96361; 96365; 96367; J0456; J0696; J2405; J2920; J7040; J7050; J7512; Q0163; 99285-25; J7030